=== PATIENT | female | born 1995 | race Caucasian/White ===

== ENCOUNTER → 2018-08-30 16:39 | Emergency (ER) | payer BC ==
[~2018-08-30 16:39] MED LIST: Cephalexin CAP* 500 MG PO ONE
--- NOTE | 2018-08-30 19:06 | ED ---
Skin Complaint - HPI Summary HPI Summary: 22-year-old female presents with abrasion to right hand yesterday. She started to notice some spreading redness from the wound today. No fevers or chills. Denies any history of this. Has no medical conditions. Denies any pussy drainage from the wound. She cleaned out the wound immediately afterwards. - History of Current Complaint Chief Complaint: EDRashSkinAbscess Time Seen by Provider: 08/30/18 18:32 Stated Complaint: CUT ON MY HAND, RED MOVING DOWN MY ARM PER PT Pain Intensity: 3 - Allergy/Home Medications Allergies/Adverse Reactions: Allergies Allergy/AdvReac Type Severity Reaction Status Date / Time No Known Allergies Allergy Verified 08/30/18 16:43 PMH/Surg Hx/FS Hx/Imm Hx Endocrine/Hematology History: Denies: Hx Diabetes Cardiovascular History: Denies: Hx Myocardial Infarction Infectious Disease History: No Infectious Disease History: Denies: Traveled Outside the [place] in Last 30 Days - Family History Known Family History: Positive: Non-Contributory - Social History Alcohol Use: None Substance Use Type: Reports: None Smoking Status (MU): Never Smoked Tobacco Review of Systems Negative: Fever Negative: Chest Pain Negative: Shortness Of Breath Positive: Rash All Other Systems Reviewed And Are Negative: Yes Physical Exam Triage Information Reviewed: Yes Vital Signs On Initial Exam: Initial Vitals Temp Pulse Resp BP Pulse Ox 99.1 F 104 20 139/103 98 08/30/18 16:42 08/30/18 16:42 08/30/18 16:42 08/30/18 16:42 08/30/18 16:42 Vital Signs Reviewed: Yes Appearance: Positive: Well-Appearing Skin: Positive: Warm, Dry, Other - abrasion to left hand slight erythema around the wound with two small streaks up arm that is mildly warm to touch Head/Face: Positive: Normal Head/Face Inspection Eyes: Positive: Normal, Conjunctiva Clear ENT: Positive: Pharynx normal Respiratory/Lung Sounds: Positive: Clear to Auscultation, Breath Sounds Present Cardiovascular: Positive: Normal, RRR Musculoskeletal: Positive: Normal Neurological: Positive: Normal Psychiatric: Positive: Normal Diagnostics - Vital Signs Vital Signs Temp Pulse Resp BP Pulse Ox 08/30/18 16:42 99.1 F 104 20 139/103 98 - Laboratory Lab Statement: Any lab studies that have been ordered have been reviewed, and results considered in the medical decision making process. Course/Dx - Course Course Of Treatment: 22-year-old female presents with abrasion to right hand yesterday. She started to notice some spreading redness from the wound today. No fevers or chills. Denies any history of this. Has no medical conditions. Denies any pussy drainage from the wound. She cleaned out the wound immediately afterwards. On exam has abrasions noted to the left hand. Some erythema with warmth surrounding it. We will place on Keflex. told return if area told to continue spreads or develop fever to return. Told to follow-up with primary otherwise. Told to wash area twice a day. Patient understands agrees with plan. - Differential Diagnoses - Skin Complaint Differential Diagnoses: Abscess, Cellulitis, Contact Dermatitis - Diagnoses Provider Diagnoses: Cellulitis Discharge - Sign-Out/Discharge Documenting (check all that apply): Patient Departure Patient Received Moderate/Deep Sedation with Procedure: No - Discharge Plan Condition: Good Disposition: HOME Prescriptions: Cephalexin CAP* [Keflex CAP*] 500 mg PO TID #29 cap Patient Education Materials: Cellulitis (ED) Referrals: Sade Selby PA [Primary Care Provider] - Additional Instructions: Take Keflex three a day for 10 days wash wound with soap and water twice a day apply neosporin to wound Follow up with primary within 3 days Return to ED if develop fever, area of redness spreads after two days on antibiotics, or any new or worsening symptoms - Billing Disposition and Condition Condition: GOOD Disposition: Home
[2018-08-30 19:18] VITALS: BP 142/88
== END | disposition home or self-care (01) ==
LOC: ED 16:39
DX: L03.113 Cellulitis of right upper limb (principal)
CPT/HCPCS: 99282; A9270-GY